=== PATIENT | female | born 1995 | race Caucasian/White ===

== ENCOUNTER 2017-03-12 12:23 | Emergency (ER) | payer BC ==
[2017-03-12 12:47] VITALS: BP 156/71
--- NOTE | 2017-03-12 13:38 | UC ---
Lower Extremity/Ankle HPI - HPI Summary HPI Summary: pt presents with c/o left foot pain anterior side 4th and 5th proximal metatarsals. Pt has history of fracture to proximal 5th metatarsal. Pt runs on a tread mill and reports that she ran for two sessions of 10 minutes at a time 4 days ago and woke 3 days ago with left foot pain - History of Current Complaint Chief Complaint: UCLowerExtremity Stated Complaint: LEFT FOOT PAIN Time Seen by Provider: 03/12/17 13:07 Hx Obtained From: Patient Hx Last Menstrual Period: 02/15/17 ?: No Onset/Duration: Sudden Onset, Lasting Days, Still Present Severity Initially: Mild Severity Currently: Mild Aggravating Factor(s): Standing, Ambulation Alleviating Factor(s): Rest, Elevation Able to Bear Weight: Yes - pain worsens with weight bearing - Allergies/Home Medications Allergies/Adverse Reactions: Allergies Allergy/AdvReac Type Severity Reaction Status Date / Time No Known Allergies Allergy Verified 03/12/17 12:47 PMH/Surg Hx/FS Hx/Imm Hx Previously Healthy: Yes - Surgical History Surgical History: Yes Surgery Procedure, Year, and Place: bilat lower leg fasciotomy - Family History Known Family History: Positive: Cardiac Disease - Social History Occupation: Employed Full-time Lives: With Family Alcohol Use: None Substance Use Type: None Smoking Status (MU): Never Smoked Tobacco Have You Smoked in the Last Year: No Review of Systems Constitutional: Negative Skin: Negative Eyes: Negative ENT: Negative Respiratory: Negative Cardiovascular: Negative Gastrointestinal: Negative Genitourinary: Negative Motor: Negative Neurovascular: Negative Musculoskeletal: Arthralgia - left foot, Myalgia - left foot Neurological: Negative Psychological: Negative All Other Systems Reviewed And Are Negative: Yes Physical Exam Triage Information Reviewed: Yes Appearance: Well-Appearing Vital Signs: Initial Vital Signs Temp 97.6 F 03/12/17 12:44 Pulse 71 03/12/17 12:44 Resp 16 03/12/17 12:44 BP 156/71 03/12/17 12:44 Pulse Ox 96 03/12/17 12:44 Vital Signs Reviewed: Yes Eye Exam: Normal ENT Exam: Normal Neck exam: Normal Respiratory Exam: Normal Cardiovascular Exam: Normal Musculoskeletal Exam: Other Musculoskeletal: Positive: Other: - tenderness Neurological Exam: Normal Psychological Exam: Normal Skin Exam: Normal Lower Extremity Course/Dx - Differential Dx/Diagnosis Differential Diagnosis/HQI/PQRI: Fracture (Closed), Strain, Tendonitis Provider Diagnoses: left foot pain. left foot strain. possible stress fracture Discharge - Discharge Plan Condition: Stable Disposition: HOME Patient Education Materials: Arthralgia (ED) Referrals: Víctor Stoll MD [Medical Doctor] - If Needed Destiny Castillo PA [Primary Care Provider] - If Needed Additional Instructions: Please follow up with your PCP or return to clinic as needed. WE have provided a referral to an orthopedic provider if needed.
--- NOTE | 2017-03-12 14:05 | RAD ---
Indication: LEFT foot pain following running. Attention base of fifth metatarsal. Question stress fracture. History of base of the fifth metatarsal fracture in 2013. Comparison: May 06, 2015 MRI. July 17, 2014 Technique: AP, lateral, and oblique views LEFT foot. Report: Healed fracture at the proximal metaphysis diaphysis junction of the fifth metatarsal noted. No acute or subacute fracture or radiographic stigmata of stress reaction. Normal articular alignment. Preserved joint spaces without significant arthropathic change. Unremarkable soft tissue contours. IMPRESSION: No evidence for fracture or radiographic stigmata of stress reaction.
== END 2017-03-12 13:48 | disposition home or self-care (01) ==
LOC: UCCORT 12:23
DX: S96.912A Strain of unspecified muscle and tendon at ankle and foot level, left foot, initial encounter (principal); M79.672 Pain in left foot; X58.XXXA Exposure to other specified factors, initial encounter
CPT/HCPCS: 99211; G0463

== ENCOUNTER 2017-06-05 11:44 | Emergency (ER) | payer BC ==
[2017-06-05 13:11] VITALS: BP 140/67
--- NOTE | 2017-06-05 14:00 | UC ---
Shoulder Pain HPI - HPI Summary HPI Summary: 21 female presents to [facility] with complaints of right shoulder pain that began 06/01/17. Patient states she worked out her shoulder/arms on Monday of last week however pain did not begin until a few days after. Does not recall any specific injury or trauma. States pain is on the top of her shoulder and worsens with movement. Admits to some numbness/tingling of right arm as well. States pain is a burning, spasmodic and cramping pain. Denies any PMHx other than compartment syndrome of legs previously. Tried taking advil and aleve without much relief. Is right hand dominant. No other complaints at this time. Denies bruising, erythema and edema. - History of Current Complaint Chief Complaint: UCUpperExtremity Stated Complaint: RIGHT SHOULDER COMPLAINT Time Seen by Provider: 06/05/17 13:51 Hx Obtained From: Patient Hx Last Menstrual Period: 06/02/17 Onset/Duration: Sudden Onset, Lasting Days, Still Present, Worse Since Timing: Constant Severity Initially: Mild Severity Currently: Moderate Location Of Pain: Is Discrete @ - right shoulder Pain Intensity: 4 Pain Scale Used: 0-10 Numeric Character: Aching, Spasmodic, Burning Aggravating Factor(s): Movement Alleviating Factor(s): Rest Associated Signs And Symptoms: Negative: Swelling, Redness, Bruising Related History: Dominant Hand Right - Allergies/Home Medications Allergies/Adverse Reactions: Allergies Allergy/AdvReac Type Severity Reaction Status Date / Time No Known Allergies Allergy Verified 06/05/17 13:11 PMH/Surg Hx/FS Hx/Imm Hx - Additional Past Medical History Additional PMH: Compartment syndrome. denies dm, htn and asthma - Surgical History Surgical History: Yes Surgery Procedure, Year, and Place: bilat lower leg fasciotomy - Family History Known Family History: Positive: Cardiac Disease - Social History Alcohol Use: None Substance Use Type: None Smoking Status (MU): Never Smoked Tobacco Have You Smoked in the Last Year: No - Immunization History Vaccination Up to Date: Yes Review of Systems Constitutional: Negative Respiratory: Negative Cardiovascular: Negative Motor: Decreased ROM, Weakness Musculoskeletal: Arthralgia, Decreased ROM - rigth shoulder, Myalgia Neurological: Paresthesia - right UE All Other Systems Reviewed And Are Negative: Yes Physical Exam Triage Information Reviewed: Yes Appearance: Well-Appearing, No Pain Distress, Well-Nourished Vital Signs: Initial Vital Signs Temp 98.1 F 06/05/17 13:08 Pulse 75 06/05/17 13:08 Resp 16 06/05/17 13:08 BP 140/67 06/05/17 13:08 Pulse Ox 99 06/05/17 13:08 Vital Signs Reviewed: Yes Eyes: Positive: Conjunctiva Clear ENT: Positive: Hearing grossly normal Neck: Positive: Supple, Nontender Respiratory: Positive: Chest non-tender, Lungs clear, Normal breath sounds, No respiratory distress, No accessory muscle use. Negative: Wheezing Cardiovascular: Positive: RRR, No Murmur, Pulses Normal, Brisk Capillary Refill - <2 Musculoskeletal: Positive: No Edema, Strength Limited @ - R shoulder due to pain , ROM Limited @ - R shoulder due to pain, better ROM with passive movement., Other: - tender on palpation of anterior top of right shoulder, no obvious signs of trauma, no crepitus step off or ecchymosis. no edema appreciated. CMS intact. clavicle non tender. no pain or tenderness at scapula. Negative: Edema @ Neurological: Positive: Alert, Muscle Tone Normal Skin Exam: Normal Diagnostics - Radiology right shoulder Xray Interpretation: No Acute Changes - NO ACUTE OSSEOUS INJURY. IF SYMPTOMS PERSIST, RECOMMEND REPEAT IMAGING. Radiology Interpretation Completed By: Radiologist Shoulder Course/Dx - Course Course Of Treatment: xray obtained and negative. appears to have sufferend a muscle strain of right shoulder. will apply sling, heat/ice, NSAIDs, sling and rest. flexeril. Stretch and use pain as guide. No concern for other etiology at this time. Follow up with ortho/pcp. or return here. aware of worsening signs and symptoms to watch out for. - Differential Dx/Diagnosis Differential Diagnosis/HQI/PQRI: AC Separation, Fracture (Closed), Rotator Cuff Injury, Sprain, Strain, Tendonitis Provider Diagnoses: right shoulder strain, pain Discharge - Discharge Plan Condition: Stable Disposition: HOME Prescriptions: Cyclobenzaprine TAB* [Flexeril 10 MG TAB*] 10 mg PO BEDTIME PRN #7 tab PRN Reason: Spasms Ibuprofen TAB* [Motrin TAB* 600 MG] 600 mg PO Q8H PRN #20 tab PRN Reason: Pain Patient Education Materials: Shoulder Pain (ED), Muscle Strain (ED) Referrals: Destiny Castillo PA [Primary Care Provider] - Additional Instructions: Wear sling while symptoms persist. Be sure to remove from sling multiple times daily to avoid frozen shoulder. Gently stretch and use pain as your guide. Heat during day, massage and ice at night. Continue ibuprofen as prescribed, with food. Try muscle relaxer at bedtime. Do not drive while taking this. IF not helping discontinue use. Rest, elevate and refrain from use until symptoms improve. New, worsening or persistent symptoms please seek medical attention. Follow up with pcp, here or ortho if symptoms persist/worsen in 4-5 days.
--- NOTE | 2017-06-05 14:18 | RAD ---
HISTORY: Right shoulder pain and injury COMPARISONS: None VIEWS: 4, Frontal internal rotation, external rotation, outlet, and axillary views of the right shoulder FINDINGS: BONE DENSITY: Normal. BONES: There is no displaced fracture. JOINTS: There is no arthropathy. ALIGNMENT: There is no dislocation. SOFT TISSUES: Unremarkable. OTHER FINDINGS: None. IMPRESSION: NO ACUTE OSSEOUS INJURY. IF SYMPTOMS PERSIST, RECOMMEND REPEAT IMAGING.
[2017-06-05] MEDS ORDERED: Ibuprofen TAB* 600 MG PO ONE (14:19)
== END 2017-06-05 14:47 | disposition home or self-care (01) ==
LOC: UCCORT 11:44
DX: S46.911A Strain of unspecified muscle, fascia and tendon at shoulder and upper arm level, right arm, initial encounter (principal); X58.XXXA Exposure to other specified factors, initial encounter; Y92.9 Unspecified place or not applicable
CPT/HCPCS: 99213; A9270-GY; G0463